=== PATIENT | female | born 1965 | race Caucasian/White ===

== ENCOUNTER 2017-02-01 15:55 | Emergency (ER) | payer OTHER ==
[~2017-02-01] VITALS: Ht 157.5 cm; Wt 56.7 kg
[2017-02-01 15:59] VITALS: Ht 157.5 cm; Wt 56.7 kg
[2017-02-01 18:36] VITALS: BP 135/87
== END 2017-02-01 18:36 | disposition home or self-care (01) ==
LOC: ED 15:55
DX: T78.40XA Allergy, unspecified, initial encounter (principal); X58.XXXA Exposure to other specified factors, initial encounter
CPT/HCPCS: J7512; Q0163

== ENCOUNTER 2017-07-04 11:16 | Emergency (ER) | payer OTHER ==
[~2017-07-04] VITALS: Ht 157.5 cm; Wt 57.1 kg
[2017-07-04 11:24] VITALS: Ht 157.5 cm; Wt 57.1 kg
[2017-07-04 12:18] LABS: CALCIUM 8.9 mg/dL (8.5-10.1); CHLORIDE SERUM 108 mmol/L (98-107); CREATININE SERUM 0.8 mg/dL (0.6-1.0); GFR1 > 60 mL/min; GLUCOSE SERUM 111 mg/dL (74-106); POTASSIUM SERUM 3.9 mmol/L (3.5-5.1); SODIUM SERUM 144 mmol/L (136-145)
[2017-07-04 12:24] LABS: ALBUMIN 3.8 g/dL (3.4-5.0); ALKALINE PHOSPHATASE 64 U/L (46-116); ALT/SGPT 26 U/L (14-59); AST/SGOT 15 U/L (15-37); BILIRUBIN TOTAL 0.29 mg/dL (0.20-1.00); TOTAL PROTEIN, SERUM 6.9 g/dL (6.4-8.2)
[2017-07-04 12:39] LABS: BASOPHIL % 0.4 % (0-2); PLATELET COUNT 241 x10^3mcL (130-400); RED CELL DISTRIBUTION WIDTH 12.6 % (11.5-14.5)
[2017-07-04 13:02] LABS: microscopic required? YES; urine erythrocyte 1+ (NEGATIVE)
[2017-07-04 13:44] LABS: AMPHETAMINE QUAL UR NONE DETECTED (NEG <=1000)
[2017-07-04 14:55] VITALS: BP 106/78
== END 2017-07-04 14:55 | disposition home or self-care (01) ==
LOC: ED 11:16
PROVIDERS: Emergency Medicine
DX: M54.12 Radiculopathy, cervical region (principal); R60.9 Edema, unspecified
CPT/HCPCS: 36415; 85378; Q0092

== ENCOUNTER 2018-07-31 09:44 | Emergency (ER) | payer OTHER ==
[~2018-07-31] VITALS: Ht 157.5 cm; Wt 59.0 kg
[2018-07-31 09:49] VITALS: Ht 157.5 cm; Wt 59.0 kg
[2018-07-31 11:05] VITALS: BP 120/86
== END 2018-07-31 11:05 | disposition home or self-care (01) ==
LOC: ED 09:44
DX: S40.862A Insect bite (nonvenomous) of left upper arm, initial encounter (principal); M54.12 Radiculopathy, cervical region; Z98.890 Other specified postprocedural states; W57.XXXA Bitten or stung by nonvenomous insect and other nonvenomous arthropods, initial encounter; Y93.89 Activity, other specified; Y92.89 Other specified places as the place of occurrence of the external cause; Y99.8 Other external cause status
CPT/HCPCS: J7512